=== PATIENT | female | born 1970 | race Caucasian/White ===

== ENCOUNTER 2017-05-10 16:02 | Emergency (ER) | payer MEDICAID, OTHER ==
[~2017-05-10] VITALS: Ht 170.2 cm; Wt 74.0 kg
[2017-05-10 16:07] VITALS: Ht 170.2 cm; Wt 74.0 kg
[2017-05-10] MEDS ORDERED: BEN25 PO (17:46)
[2017-05-10] MEDS ORDERED: LISI10TA2 PO (17:46)
[2017-05-10] MEDS ORDERED: TRIA15CR55 TOP (17:46)
[2017-05-10] MEDS ORDERED: PRED20TA PO (17:46)
--- NOTE | 2017-05-10 17:49 | ERD ---
ER Documentation Chief Complaint Date/Time DATE: 05/10/17 TIME: 17:48 Chief Complaint GENERALIZED RASH , ALSO NEEDS MED REFILL ON HTN MEDS HPI This 47-year-old female complains of multiple skin lesions over the last 4 days. She is staying at a hotel. She feels that she has been bitten by insects. She is also requesting refill on her hypertension medication. She has no chest pain, shortness breath, fevers. ROS All systems reviewed and are negative except as per history of present illness. Medications Home Meds Active Scripts Lisinopril* (Lisinopril*) 10 Mg Tablet, 10 MG PO DAILY, #30 TAB Prov:KRISTINA HALL MD 05/10/17 Diphenhydramine Hcl* (Benadryl*) 25 Mg Cap, 25 MG PO Q6, #20 CAP Prov:KRISTINA HALL MD 05/10/17 Prednisone* (Prednisone*) 20 Mg Tab, 40 MG PO DAILY for 4 Days, TAB Prov:KRISTINA HALL MD 05/10/17 Triamcinolone Acetonide (Triamcinolone Acetonide) 0.1% - 15 Gm Cream.gm., 1 APPLIC TOP QID, #1 TUB 30g Prov:KRISTINA HALL MD 05/10/17 Physical Exam Vitals Vital Signs Date Time Temp Pulse Resp B/P Pulse Ox O2 Delivery O2 Flow Rate FiO2 05/10/17 16:07 98.2 87 18 141/67 98 Physical Exam Const: [] Alert, [id number]. Head: Atraumatic Eyes: Normal Conjunctiva ENT: Normal External Ears, Nose and Mouth. Neck: Full range of motion..~ No meningismus. Resp: Clear to auscultation bilaterally Cardio: Regular rate and rhythm, no murmurs Abd: Soft, non tender, non distended. Normal bowel sounds Skin: No petechiae or purpura. There are scattered welts on the extremities and trunk. Slight amount of central papules and weeping. There is no induration, streaking, fluctuance. Back: No midline or flank tenderness Ext: No cyanosis, or edema Neur: Awake and alert Psych: Normal Mood and Affect Results 24 hrs Current Medications Medications (Trade) Dose Ordered Sig/Karen Route PRN Reason Start Time Stop Time Status Last Admin Dose Admin Prednisone (Prednisone) 60 mg ONCE ONCE PO 05/10/17 18:00 05/10/17 18:01 Diphenhydramine HCl (Benadryl) 25 mg ONCE ONCE PO 05/10/17 18:00 05/10/17 18:01 Procedures/MDM Patient presents with signs and symptoms of insect bites with local reaction. Patient is advised to change her dwelling are discussed with the hotel owner oral surgeon for treatment for possible bedbugs. Patient will be given refill of lisinopril for hypertension as well. There is no signs or symptoms to suggest endorgan damage or hypertensive emergency. Patient is advised to return for shortness of breath, fevers, new worsening symptoms with primary care doctor this week. The patient was stable with no new complaints during the ER course. Clinically, there is no current evidence to suggest meningitis, sepsis, acute abdomen, pneumonia, acute coronary syndrome, pulmonary embolism, or any other emergent condition appearing to require further evaluation or hospitalization. The patient should certainly return for any new or worsening symptoms per the aftercare instructions. They should otherwise follow-up with her primary care doctor for reevaluation this week. Departure Diagnosis: Primary Impression: Hypertension Hypertension type: essential hypertension Qualified Code: I10 - Essential hypertension Additional Impression: Insect bite Encounter type: initial encounter Qualified Code: W57.XXXA - Insect bite, initial encounter Patient Instructions: Hypertension, Established, Allergic Reaction, Insect ( Local) Additional Instructions: Likely reaction to insects. Recommend obtaining new housing environment and have current dwelling treated by landlord responsible republican. Recheck otherwise for new or worsening symptoms have not fevers, shortness of breath. KRISTINA HALL MD May 10, 2017 17:49
[2017-05-10] MEDS ORDERED: predniSONE 20 MG TAB PO ONE (18:00)
[2017-05-10] MEDS ORDERED: DIPHENHYDRAMINE 25 MG CAP PO ONE (18:00)
== END 2017-05-10 18:32 | disposition home or self-care (01) ==
LOC: FTE 16:02
DX: I10 Essential (primary) hypertension (principal); S60.561A Insect bite (nonvenomous) of right hand, initial encounter; W57.XXXA Bitten or stung by nonvenomous insect and other nonvenomous arthropods, initial encounter; Y92.89 Other specified places as the place of occurrence of the external cause
CPT/HCPCS: J7512; Z7502; Z7610; 99284